=== PATIENT | male | born 1980 | race Caucasian/White ===

== ENCOUNTER 2017-10-07 16:40 | Emergency (ER) | payer OTHER ==
--- NOTE | 2017-10-07 16:54 | ER Report ---
History and Physical Time Seen By MD: 16:53 Hx. of Stated Complaint: pt was at his car, bent over to grab something and started having intense lower back pain. pt denies any injury, pop or spasms. pt has hisory of back ain that he take ibuprofen for kelsy, but has never experienced anything like this before. HPI/ROS CHIEF COMPLAINT: Back pain HISTORY OF PRESENT ILLNESS: This is a 36-year-old male who presents to the emergency department via EMS for back pain. Patient states that he was bending over picking up something outside of his car presently 30 minute prior to arrival suddenly developed some low back pain became concerned, called the ambulance. Patient arrives alert and oriented. No loss of bowel or bladder. No recent fevers or chills. Patient states he has had lower back pain in the past however this is the most painful facilities had. No numbness or tingling to the lower extremities. No saddle anesthesia. REVIEW OF SYSTEMS: Constitutional: No fever, no chills. Eyes: No discharge. ENT: No sore throat. Cardiovascular: No chest pain, no palpitations. Respiratory: No cough, no shortness of breath. Gastrointestinal: No abdominal pain, no vomiting. Genitourinary: No hematuria. Musculoskeletal: As above. Skin: No rashes. Neurological: No headache. Home Meds Active Scripts Hydrocodone Bit/Acetaminophen (HYDROCODON-ACETAMINOPHEN 5-325) 1 Each Tablet, 1 EACH PO Q4-6H Y for PAIN, #8 TAB 0 Refills Prov:GEREMIAS MUÑIZ [employer]-BC 10/07/17 Cyclobenzaprine Hcl (CYCLOBENZAPRINE HCL) 10 Mg Tablet, 5-10 MG PO TID Y for MUSCLE SPASMS, #9 TAB 0 Refills Prov:GEREMIAS MUÑIZ [employer]-BC 10/07/17 Reported Medications Mirtazapine (MIRTAZAPINE) 30 Mg Tablet, 30 MG PO HS 10/07/17 Past Medical/Surgical History The patient has a past medical and surgical history of hernia repair, wears glasses, depression, intermittent low back pain. Reviewed Nurses Notes: Yes Hx Substance Use Disorder: No Constitutional Vital Sign - Last 24 Hours 10/07/17 16:45 Pulse 70 Resp 18 Pulse Ox 95 O2 Delivery Room Air Physical Exam General Appearance: The patient is alert, has no immediate need for airway protection and no signs of toxicity. Eyes: Pupils equal and round no pallor or injection. ENT, Mouth: Mucous membranes are moist. Respiratory: There are no retractions, lungs are clear to auscultation. Cardiovascular: Regular rate and rhythm. Gastrointestinal: Abdomen is soft and non tender, no masses, bowel sounds normal. Neurological: Alert and oriented 4. Moving all extremities. Following all commands. No focal neuro deficits. Skin: Warm and dry, no rashes. Musculoskeletal: Generalized Lumbar back pain, no obvious deformities, no step- offs or crepitus identified. Increased pain to the lumbar region with passive straight leg raise. Patient is able to lift both legs off the gurney however does increase the intensity of the back pain. Extremities are nontender, nonswollen and have full range of motion. DIFFERENTIAL DIAGNOSIS: After history and physical exam differential diagnosis was considered for back pain including but not limited to muscular pain, herniated disc, spine fracture, intra-abdominal causes and urinary tract infection. Medical Decision Making EKG/Imaging Imaging Location: [facility] Patient: Gustabo Huerta : 1980 Visit/Account:[id number] Date of Sevice: 10/07/2017 LUMBAR SPINE 4 VIEWS INDICATION: Back pain after flexion today. COMPARISON: None available FINDINGS: 4 views of the lumbar spine. There are 5 nonrib-bearing lumbar vertebral bodies. The vertebral bodies are aligned. No compression fractures, bony lesions or spondylolysis. There is very mild degenerative changes in the lower lumbar spine including mild disc space narrowing, small osteophytes and mild facet arthropathy. The endplates are maintained. The pedicles are well seen. Soft tissues are unremarkable. IMPRESSION: Very mild degenerative changes without acute abnormality. Report Dictated By: Abel Nicholson at 10/07/2017 5:44 PM Report E-Signed By: Abel Nicholson at 10/07/2017 5:46 PM WSN:[id number] ED Course/Re-evaluation Clinical Indication for ER IV: IV Access ED Course The patient was admitted to room. A history and physical were obtained. Differential diagnoses were considered. Patient was given 30 mg IM Toradol, 5 mg IM and Valium, which did improve some of the pain however the patient was still having some discomfort and additional 5 mg IV Valium was given. Patient did have some relief. Lumbar x-ray showing no acute findings, mild degenerative changes. Patient was given a prescription for Flexeril and hydrocodone. He was also instructed to follow-up with a primary care provider when he returns home for reevaluation of his back pain. The patient had no other questions or concerns at this time and was discharged home. 10/07/2017 5:46:41 pm patient states he is feeling a little better after the injections. Patient is actively urinating. 10/07/2017 5:57:27 pm I reviewed the radiology results with the patient and his sister. Patient states he still is having some pain did tell patient that he 'll continue to have pain for the next several days. Said I will give him 1 more dose of Valium this time through the IV and I'll send a couple prescription to his pharmacy. Also sent home with a prescription for physical therapy. Decision to Disposition Date: Oct 07, 2017 Decision to Disposition Time: 18:05 Depart Departure Latest Vital Signs Vital Signs Date Time Temp Pulse Resp B/P (MAP) Pulse Ox O2 Delivery O2 Flow Rate FiO2 10/07/17 16:45 70 18 95 Room Air Impression: Primary Impression: Back pain Condition: Improved Disposition: HOME OR SELF-CARE New Scripts Hydrocodone Bit/Acetaminophen (HYDROCODON-ACETAMINOPHEN 5-325) 1 Each Tablet 1 EACH PO Q4-6H Y for PAIN, #8 TAB 0 Refills Prov: GEREMIAS MUÑIZP- 10/07/17 Cyclobenzaprine Hcl (CYCLOBENZAPRINE HCL) 10 Mg Tablet 5-10 MG PO TID Y for MUSCLE SPASMS, #9 TAB 0 Refills Prov: GEREMIAS MUÑIZP- 10/07/17 Patient Instructions: Acute Low Back Pain (ED) Additional Instructions: Drink plenty of fluids. Get plenty of rest. Take the medications as prescribed. Follow up with your primary care provider when you return home. Consider physical therapy for the back pain Return to the ED for any other concerns or worsening symptoms. Problem Qualifiers Primary Impression: Back pain Back pain location: low back pain Chronicity: acute Back pain laterality: bilateral Sciatica presence: without sciatica Qualified Codes: M54.5 - Low back pain GEREMIAS MUÑIZP- Oct 07, 2017 16:54
[2017-10-07] MEDS ORDERED: MIRT-25 PO (16:58)
[2017-10-07] MEDS ORDERED: KETOROLAC 30 MG/ML VIAL IVP ONE (17:00)
[2017-10-07] MEDS ORDERED: DIAZEPAM 50 MG/10 ML MDV IVP ONE ×2 (17:00→18:00)
[2017-10-07] MEDS ORDERED: DIAZEPAM 50 MG/10 ML MDV IM ONE (17:15)
[2017-10-07] MEDS ORDERED: KETOROLAC 30 MG/ML VIAL IM ONE (17:15)
--- NOTE | 2017-10-07 17:50 | RADIOLOGY IMAGING REPORT ---
FACILITY: [facility] PATIENT NAME: Gustabo Huerta : 1980 MR: [id number] V: [id number] EXAM DATE: ORDERING PHYSICIAN: GEREMIAS MUÑIZ TECHNOLOGIST: Location: [facility] Patient: Gustabo Huerta : 1980 Visit/Account:[id number] Date of Sevice: 10/07/2017 LUMBAR SPINE 4 VIEWS INDICATION: Back pain after flexion today. COMPARISON: None available FINDINGS: 4 views of the lumbar spine. There are 5 nonrib-bearing lumbar vertebral bodies. The vert ebral bodies are aligned. No compression fractures, bony lesions or spondylolysis. There is very mild degenerative changes in the lower lumbar spine including mild disc space narrowing, small osteophyte s and mild facet arthropathy. The endplates are maintained. The pedicles are well seen. Soft tissues are unremarkable. IMPRESSION: Very mild degenerative changes without acute abnormality. Report Dictated By: Abel Nicholson at 10/07/2017 5:44 PM Report E-Signed By: Abel Nicholson at 10/07/2017 5:46 PM WSN:[id number]
[2017-10-07] MEDS ORDERED: HYDR-385 PO (18:00)
[2017-10-07] MEDS ORDERED: CYCL10TA29 PO (18:00)
== END 2017-10-07 18:30 | disposition home or self-care (01) ==
LOC: ER 16:52
DX: M54.5 Low back pain (principal)
CPT/HCPCS: 72120; 96374; 96375; 96376; 99283; J1885; J3360

== ENCOUNTER → 2017-10-07 | Outpatient (CLI) | payer OTHER ==
[~2017-10-07] MED LIST: CYCL10TA29 PO; HYDR-385 PO; MIRT-25 PO
== END ==
LOC: AMB 16:20
PROVIDERS: ATTEND Nurse Practitioner
DX: M54.5 Low back pain (principal)
CPT/HCPCS: A0425; A0427